=== PATIENT | female | born 1970 | race Caucasian/White ===

== ENCOUNTER 2019-07-28 21:41 | Emergency (ER) | payer OTHER ==
--- NOTE | 2019-07-28 21:57 | EDM.PDOC ---
ED HPI GENERAL MEDICAL PROBLEM - General Chief Complaint: Upper Extremity Injury/Pain Stated Complaint: PT RT SIDE OF BODY HURTING Time Seen by Provider: 07/28/19 21:45 Source of Information: Reports: Patient History Limitations: Reports: No Limitations - History of Present Illness INITIAL COMMENTS - FREE TEXT/NARRATIVE: HISTORY AND PHYSICAL: History of present illness: Patient is a 48-year-old female who presents to the emergency room today with complaints of chronic pain. She states that she had a fall in 2013 and since then has had right shoulder, elbow and hip pain. She has been seen before and has had imaging of this which were benign. She states for several weeks she has had an increase in her pain which is not alleviated with naproxen. She denies any recent injury, trauma or falls. Patient denies any fever, chills, headache, change in vision, syncope or near syncope. Denies any chest pain, shortness of breath or cough. Denies any abdominal pain, nausea, vomiting, diarrhea, constipation or dysuria. Has not noted any blood in urine or stool. Patient has been eating and drinking appropriately. Review of systems: As per history of present illness and below otherwise all systems reviewed and negative. Past medical history: As per history of present illness and as reviewed below otherwise noncontributory. Surgical history: As per history of present illness and as reviewed below otherwise noncontributory. Social history: See social history for further information Family history: As per history of present illness and as reviewed below otherwise noncontributory. Physical exam: General: Well-developed and well-nourished 48-year-old female. Alert and oriented. Nontoxic appearing and in no acute distress. HEENT: Atraumatic, normocephalic, pupils equal and reactive bilaterally, negative for conjunctival pallor or scleral icterus, mucous membranes moist, TMs normal bilaterally, throat clear, neck supple, nontender, trachea midline. No drooling or trismus noted. No meningeal signs. No hot potato voice noted. Lungs: Clear to auscultation, breath sounds equal bilaterally, chest nontender. Heart: S1S2, regular rate and rhythm without overt murmur Abdomen: Soft, nondistended, nontender. Skin: Intact, warm, dry. No lesions or rashes noted. C-spine/Back: No pinpoint vertebral tenderness upon palpation. No crepitus, step -offs or obvious deformities. Patient does have pain to the right sciatic area into the glute and into the front of thigh. Patient is ambulatory into the emergency room without difficulty or deficit. Able to rock back on heels and walk on toes. Denies any urinary or fecal incontinence. Denies any numbness, tingling or saddle paresthesia. Extremities: Atraumatic, moves all extremities per self without difficulty or deficits, negative for cords or calf pain. Neurovascular unremarkable. Neuro: Awake, alert, oriented. Cranial nerves II through XII unremarkable. Cerebellum unremarkable. Motor and sensory unremarkable throughout. Exam nonfocal. Notes: We discussed imaging, as she has not had any new injury, trauma or falls is not warranted at this time. We discussed the need for establishing care with a primary care provider to further evaluation and management of her chronic pain. Supportive care measures were reviewed and discussed. Voices understanding and is agreeable to plan of care. Denies any further questions or concerns at this time. Diagnostics: None Therapeutics: Norflex Prescription: None Impression: Chronic Pain Sciatica Plan: 1. The medication you received today does cause drowsiness, so do not drive for the remaining day 2. When resting please lay on a flat firm surface. Limit your immobility to prevent muscle stiffness. Get up to ambulate/move around/gentle stretching multiple times throughout the day. May alternate heat and ice to the painful areas 3. Tylenol as needed for back pain. Otherwise take the prescribed Flexeril and diclofenac as directed. Diclofenac is an anti-inflammatory so do not take any additional NSAIDs with this medication, such as Naproxen, ibuprofen or Aleve. 4. Please follow-up with your primary care provider as we discussed. Return to the ED as needed and as discussed. Definitive disposition and diagnosis as appropriate pending reevaluation and review of above. bilateral upper & lower extremities Pain Score (Numeric/FACES): 6 - Related Data Allergies Allergy/AdvReac Type Severity Reaction Status Date / Time No Known Allergies Allergy Verified 07/28/19 21:53 Home Meds: Home Meds Naproxen 500 mg PO ASDIRECTED 07/28/19 [History] Review of Systems - Review of Systems Review Of Systems: ROS reveals no pertinent complaints other than HPI. ED EXAM, GENERAL - Physical Exam Exam: See Below (See dictation) Course - Vital Signs Last Recorded V/S: Last Vital Signs Temp 96.8 F 07/28/19 21:54 Pulse 92 07/28/19 21:54 Resp 18 07/28/19 21:54 BP 148/93 H 07/28/19 21:54 Pulse Ox 97 07/28/19 21:54 - Orders/Labs/Meds Meds: Medications Discontinued Medications Generic Name Dose Route Start Last Admin Trade Name Sandra PRN Reason Stop Dose Admin Orphenadrine Citrate 60 mg 07/28/19 22:10 Norflex IM 07/28/19 22:11 NOW STA Departure - Departure Time of Disposition: 22:13 Disposition: Home, Self-Care 01 Clinical Impression: Chronic pain Qualifiers: Chronic pain type: other chronic pain Qualified Code(s): G89.29 - Other chronic pain Sciatica Qualifiers: Laterality: right Qualified Code(s): M54.31 - Sciatica, right side - Discharge Information Instructions: Chronic Pain, Adult Referrals: PCP,None [Primary Care Provider] - Forms: ED Department Discharge Additional Instructions: The following information is given to patients seen in the emergency department who are being discharged to home. This information is to outline your options for follow-up care. We provide all patients seen in our emergency department with a follow-up referral. The need for follow-up, as well as the timing and circumstances, are variable depending upon the specifics of your emergency department visit. If you don't have a primary care physician on staff, we will provide you with a referral. We always advise you to contact your personal physician following an emergency department visit to inform them of the circumstance of the visit and for follow-up with them and/or the need for any referrals to a consulting specialist. The emergency department will also refer you to a specialist when appropriate. This referral assures that you have the opportunity for follow-up care with a specialist. All of these measure are taken in an effort to provide you with optimal care, which includes your follow-up. Under all circumstances we always encourage you to contact your private physician who remains a resource for coordinating your care. When calling for follow-up care, please make the office aware that this follow-up is from your recent emergency room visit. If for any reason you are refused follow-up, please contact the [facility] Emergency Department at and asked to speak to the emergency department charge nurse. [facility] [address] [place] [address] [facility] [address] [place] [address] 1. The medication you received today does cause drowsiness, so do not drive for the remaining day 2. When resting please lay on a flat firm surface. Limit your immobility to prevent muscle stiffness. Get up to ambulate/move around/gentle stretching multiple times throughout the day. May alternate heat and ice to the painful areas 3. Tylenol as needed for back pain. Otherwise take the prescribed Flexeril and diclofenac as directed. Diclofenac is an anti-inflammatory so do not take any additional NSAIDs with this medication, such as Naproxen, ibuprofen or Aleve. 4. Please follow-up with your primary care provider as we discussed. Return to the ED as needed and as discussed.
--- NOTE | 2019-07-28 23:30 | CR ---
INDICATION: Pain TECHNIQUE: AP pelvis and two views right hip COMPARISON: None FINDINGS: Bones: Alignment is normal. No fractures or bone lesions. Joint spaces: Unremarkable. Soft tissues: Unremarkable. IMPRESSION: Negative. Dictated by Clarence Mary MD @ 07/28/2019 11:29:47 PM Dictated by: Clarence Mary MD @ 07/28/2019 23:29:51 (Electronically Signed)
== END 2019-07-28 23:38 | disposition home or self-care (01) ==
LOC: MW.ED 21:41
DX: M54.31 Sciatica, right side (principal); M54.32 Sciatica, left side; G89.29 Other chronic pain
CPT/HCPCS: 73502; 96372; 99283; J2360